=== PATIENT | female | born 1970 | race Hispanic/Latino ===

== ENCOUNTER 2022-01-31 15:39 | Emergency (ER) | payer MEDICARE ==
[2022-01-31 15:42] VITALS: BP 217/138
[2022-01-31] MEDS ORDERED: fentaNYL 100 MCG/2 ML INJ IV ONE (17:21)
[2022-01-31] MEDS ORDERED: diphenhydrAMINE 50 MG/ML VIAL IV ONE (17:21)
[2022-01-31] MEDS ORDERED: METOCLOPRAMIDE 10 MG/2 ML INJ IV ONE (17:21)
[2022-01-31] MEDS ORDERED: SODIUM CHLORIDE 0.9% 1000 ML 1,000 ML IV ONE (17:22)
--- NOTE | 2022-01-31 17:26 | Emergency Department Report ---
HPI - General Chief Complaint: Nausea/Vomiting/Diarrhea Time Seen by Provider: 01/31/22 17:14 - [facility] HPI: Room 35 The patient is a 51-year-old female present with a chief complaint of "gastroparesis attack." The patient states she has a longstanding history of gastroparesis and this morning she had her classic symptoms which includes epigastric/left upper quadrant abdominal pain associated with nausea vomiting. Patient states it feels exactly like her previous bouts of gastroparesis. Patient denies history of diarrhea or dysuria. Patient gives her pain a score of "100/10." ED Past Medical Hx - Past Medical History Hx Diabetes: Yes Additional medical history: Hypothyroidism. 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 denies: diarrhea Genitourinary: denies: dysuria Musculoskeletal: denies: back pain Neurological: denies: headache Physical Exam - Physical Exam Vital Signs: Vital Signs 01/31/22 15:40 Pulse Rate 104 H Blood Pressure 217/138 [Left] O2 Sat by Pulse 99 Oximetry Physical Exam: GENERAL: The patient is well-developed well-nourished female lying on stretcher not appearing to be in acute distress. [] HEENT: Normocephalic. Atraumatic. Extraocular motions are intact. Patient has moist mucous membranes. NECK: Supple. Trachea midline CHEST/LUNGS: Clear to auscultation. There is no respiratory distress noted. HEART/CARDIOVASCULAR: Regular. There is no tachycardia. There is no gallop rub or murmur. ABDOMEN: Abdomen is soft, with tenderness to palpation in the epigastric and left upper quad. Patient has normal bowel sounds. There is no abdominal distention. SKIN: There is no rash. There is no edema. There is no diaphoresis. NEURO: The patient is awake, alert, and oriented. The patient is cooperative. The patient has no focal neurologic deficits. The patient has normal speech and gait. GCS 15 MUSCULOSKELETAL: There is no evidence of acute injury. ED Course Vital Signs 01/31/22 15:40 Pulse Rate 104 H Blood Pressure 217/138 [Left] O2 Sat by Pulse 99 Oximetry - Reevaluation(s) Reevaluation #1: 01/31/22 17:54 Patient eloped ED Medical Decision Making - Differential Diagnosis Gastroparesis, gastritis, pancreatitis, DKA Critical care attestation.: If time is entered above; I have spent that time in minutes in the direct care of this critically ill patient, excluding procedure time. ED Disposition Clinical Impression: Nausea & vomiting, Abdominal pain, Uncontrolled hypertension Disposition: 07 LEFT AWOL/ELOPED Is pt being admited?: No Does the pt Need Aspirin: No Condition: Undetermined Instructions: Hypertension (ED) Time of Disposition: 17:54 (Patient eloped)
== END 2022-01-31 18:01 | disposition left against medical advice (07) ==
LOC: ED 15:39
DX: R11.2 Nausea with vomiting, unspecified (principal); R10.9 Unspecified abdominal pain; I10 Essential (primary) hypertension; F17.200 Nicotine dependence, unspecified, uncomplicated; F12.90 Cannabis use, unspecified, uncomplicated; E11.8 Type 2 diabetes mellitus with unspecified complications
CPT/HCPCS: 99282; J3010; J7030; J3490; J1200; J2765